=== PATIENT | female | born 1935 | race African-American/Black ===

== ENCOUNTER 2017-04-21 22:10 | Emergency (ER) | payer MEDICARE, BC ==
[~2017-04-21] VITALS: Ht 152.4 cm; Wt 99.8 kg
[~2017-04-21 22:10] MED LIST: DIPY75TA PO; ERGO500027 PO; FURO20TA3 PO; LISI40TA PO; POTA10TA31 PO; POTASSIUM CHLO10 MEQ PO; RANI300C PO; TRAM50TA PO
[2017-04-21] MEDS ORDERED: KETOROLAC TROMETHAMINE 30 MG/ML INJ. IV ONE (22:30)
[2017-04-21] MEDS ORDERED: diphenhydrAMINE 50 MG/ML VIAL IVP ONE (22:30)
[2017-04-21] MEDS ORDERED: HYDROcodone/APAP 5/325MG 1 TAB TABLET PO ONE (22:30)
[2017-04-21 22:42] LABS: BASO % 0 % (0-3); EOS % 3 % (0-3); HEMATOCRIT 37.4 % (36.0-47.0); HEMOGLOBIN 12.1 g/dL (12.0-15.5); LYMPH # 1.1 x10^3/uL (1.0-4.8); LYMPH % 23 % (24-48); MEAN CORPUSCULAR HEMOGLOBIN 24 pg (25-35); MEAN CORPUSCULAR HGB CONC 32 g/dL (31-37); MEAN CORPUSCULAR VOLUME 75 fL (79-100); MONO % 9 % (0-9); NEUT % 66 % (31-73); PLATELET COUNT 196 x10^3/uL (140-400); RED BLOOD COUNT 5.01 x10^6/uL (3.50-5.40); RED CELL DISTRIBUTION WIDTH 17.5 % (11.5-14.5)
[2017-04-21] MEDS ORDERED: IV NORMAL SALINE 1000ML BAG 1,000 ML IV ONE (22:45)
[2017-04-21 22:49] LABS: INR 1.1 (0.8-1.1); PROTHROMBIN TIME PATIENT 13.4 SEC (11.7-14.0)
--- NOTE | 2017-04-21 23:52 | PHYS DOC ---
Past Medical History Past Medical History: Asthma, Hypertension, TIA Past Surgical History: Cholecystectomy, Hysterectomy Additional Past Surgical Histo: Gastric Bypass Alcohol Use: None Drug Use: None Adult General Chief Complaint Chief Complaint: DIARRHEA HPI HPI Patient is a 82 year old female presenting to the emergency department for evaluation of diarrhea that started today at 2 AM. Says that she is going at least once every hour and that is very watery and that every time she eats or drinks something she has a watery stool. She denies there being any blood in it and she also denies any abdominal pain fevers chills nausea vomiting. She also denies any recent antibiotic use chemotherapy diabetes or travel. She has tried some Imodium with little relief. Review of Systems Review of Systems Constitutional: Denies fever or chills [] Eyes: Denies change in visual acuity, redness, or eye pain [] HENT: Denies nasal congestion or sore throat [] Respiratory: Denies cough or shortness of breath [] Cardiovascular: No additional information not addressed in HPI [] GI: Denies abdominal pain, nausea, vomiting, bloody stools. + diarrhea [] : Denies dysuria or hematuria [] Musculoskeletal: Denies back pain or joint pain [] Integument: Denies rash or skin lesions [] Neurologic: Denies headache, focal weakness or sensory changes [] Current Medications Current Medications Current Medications Medications (Trade) Dose Ordered Sig/Reinaldo Start Time Stop Time Status Last Admin Dose Admin Acetaminophen/ Hydrocodone Bitart (Lortab 5/325) 2 tab 1X ONCE 04/21/17 22:30 04/21/17 22:30 DC Diphenhydramine HCl (Benadryl) 50 mg 1X ONCE 04/21/17 22:30 04/21/17 22:30 DC Ketorolac Tromethamine (Toradol) 30 mg 1X ONCE 04/21/17 22:30 04/21/17 22:30 DC Sodium Chloride 1,000 ml @ 1,000 mls/hr 1X ONCE 04/21/17 22:45 04/21/17 23:44 DC 04/21/17 22:45 1,000 MLS/HR Allergies Allergies Allergies Coded Allergies Type Severity Reaction Last Updated Verified Sulfa (Sulfonamide Antibiotics) Allergy Intermediate 02/01/16 Yes Physical Exam Physical Exam Constitutional: Well developed, well nourished, no acute distress, non-toxic appearance. [] HENT: Normocephalic, atraumatic, bilateral external ears normal, oropharynx moist, no oral exudates, nose normal. [] Eyes: PERRLA, EOMI, conjunctiva normal, no discharge. [] Neck: Normal range of motion, no tenderness, supple, no stridor. [] Cardiovascular:Heart rate regular rhythm and tachycardiac at 105, no murmur [] Lungs & Thorax: Bilateral breath sounds clear to auscultation [] Abdomen: Bowel sounds normal, soft, no tenderness, no masses, no pulsatile masses. [] Skin: Warm, dry, no erythema, no rash. [] Back: No tenderness, no CVA tenderness. [] Extremities: No tenderness, no cyanosis, no clubbing, ROM intact, no edema. [] Neurologic: Alert and oriented X 3, normal motor function, normal sensory function, no focal deficits noted. [] Current Patient Data Vital Signs Vital Signs Date Time Temp Pulse Resp B/P (MAP) Pulse Ox O2 Delivery O2 Flow Rate FiO2 04/22/17 00:00 94 14 166/74 (104) 97 Room Air 04/21/17 22:15 97.5 97.5 Lab Values Laboratory Tests Test 04/21/17 22:30 04/22/17 00:02 White Blood Count 5.0 x10^3/uL (4.0-11.0) Red Blood Count 5.01 x10^6/uL (3.50-5.40) Hemoglobin 12.1 g/dL (12.0-15.5) Hematocrit 37.4 % (36.0-47.0) Mean Corpuscular Volume 75 fL (79-100) L Mean Corpuscular Hemoglobin 24 pg (25-35) L Mean Corpuscular Hemoglobin Concent 32 g/dL (31-37) Red Cell Distribution Width 17.5 % (11.5-14.5) H Platelet Count 196 x10^3/uL (140-400) Neutrophils (%) (Auto) 66 % (31-73) Lymphocytes (%) (Auto) 23 % (24-48) L Monocytes (%) (Auto) 9 % (0-9) Eosinophils (%) (Auto) 3 % (0-3) Basophils (%) (Auto) 0 % (0-3) Neutrophils # (Auto) 3.2 x10^3uL (1.8-7.7) Lymphocytes # (Auto) 1.1 x10^3/uL (1.0-4.8) Monocytes # (Auto) 0.4 x10^3/uL (0.0-1.1) Eosinophils # (Auto) 0.1 x10^3/uL (0.0-0.7) Basophils # (Auto) 0.0 x10^3/uL (0.0-0.2) Prothrombin Time 13.4 SEC (11.7-14.0) Prothrombin Time INR 1.1 (0.8-1.1) PTT 32 SEC (24-38) Sodium Level 139 mmol/L (136-145) Potassium Level 4.0 mmol/L (3.5-5.1) Chloride Level 107 mmol/L (98-107) Carbon Dioxide Level 23 mmol/L (21-32) Anion Gap 9 (6-14) Blood Urea Nitrogen 15 mg/dL (7-20) Creatinine 1.0 mg/dL (0.6-1.0) Estimated GFR (Cockcroft-Gault) 64.6 BUN/Creatinine Ratio 15 (6-20) Glucose Level 89 mg/dL (70-99) Calcium Level 10.4 mg/dL (8.5-10.1) H Magnesium Level 1.9 mg/dL (1.8-2.4) Total Bilirubin 0.6 mg/dL (0.2-1.0) Aspartate Amino Transferase (AST) 35 U/L (15-37) Alanine Aminotransferase (ALT) 13 U/L (14-59) L Alkaline Phosphatase 78 U/L (46-116) Creatine Kinase 54 U/L (26-192) Total Protein 6.8 g/dL (6.4-8.2) Albumin 3.1 g/dL (3.4-5.0) L Albumin/Globulin Ratio 0.8 (1.0-1.7) L Laboratory Tests 04/21/17 22:30 Laboratory Tests 04/22/17 00:02 EKG EKG [] Radiology/Procedures Radiology/Procedures [] Course & Med Decision Making Course & Med Decision Making Patient with nonspecific diarrhea that does not sound particularly concerning to me and she is having no pain fevers or blood in it. She is slightly tachycardic and she is allergy so I will check some labs give fluids and reassess. Labs are quite unremarkable. After 1 L of fluids her heart rate is down to 80 and she feels better and is asking to go home. Wanted to check a stool sample and she says that she was having diarrhea every 30 minutes to one hour but she did not have a single stool during her three-hour emergency department stay. Patient was told to drink plenty of fluids eat a soft nonirritating diet and follow with her primary care provider in 2-3 days to ensure improvement and to come back to the ER sooner with any worsening pain dizziness fevers or other general concerns. Patient aware and agreeable with plan and verbalized understanding of the above instructions. Dragon Disclaimer Dragon Disclaimer This electronic medical record was generated, in whole or in part, using a voice recognition dictation system. Departure Departure Impression: Primary Impression: Diarrhea Additional Impression: Dehydration Disposition: 01 HOME, SELF-CARE Condition: GOOD Referrals: LUIS FARLEY MD (PCP) Patient Instructions: Diarrhea Problem Qualifiers Primary Impression: Diarrhea Diarrhea type: unspecified type Qualified Codes: R19.7 - Diarrhea, unspecified FRANCO RAWLS DO Apr 21, 2017 23:52
[2017-04-22 00:34] LABS: CALCIUM 10.4 mg/dL (8.5-10.1); GFR 64.6
[2017-04-22 00:39] LABS: ALBUMIN 3.1 g/dL (3.4-5.0); ALBUMIN/GLOBULIN RATIO 0.8 (1.0-1.7); MAGNESIUM 1.9 mg/dL (1.8-2.4); TOTAL BILIRUBIN 0.6 mg/dL (0.2-1.0); TOTAL PROTEIN 6.8 g/dL (6.4-8.2)
[2017-04-22 00:49] VITALS: BP 162/74
== END 2017-04-22 01:07 | disposition home or self-care (01) ==
LOC: ER 22:10
DX: R19.7 Diarrhea, unspecified (principal); E86.0 Dehydration; R00.0 Tachycardia, unspecified; J45.909 Unspecified asthma, uncomplicated; I10 Essential (primary) hypertension; Z86.73 Personal history of transient ischemic attack (TIA), and cerebral infarction without residual deficits; Z90.49 Acquired absence of other specified parts of digestive tract; Z90.710 Acquired absence of both cervix and uterus; Z98.84 Bariatric surgery status; Z88.2 Allergy status to sulfonamides
CPT/HCPCS: 36415; 80053; 82550; 83735; 83880; 85027; 85610; 85730; 96360; 96361; 99285; C1887; J7030

== ENCOUNTER → 2017-04-23 | Outpatient (CLI) | payer MEDICARE, BC ==
[2016-09-27 18:17] VITALS: BP_DIAS 74
[2017-04-22 00:49] VITALS: BP_SYST 162
--- NOTE | 2017-04-23 12:03 | RAD ---
DATE: 04/23/2017 EXAM: DIGITAL SCREEN BILAT W/CAD HISTORY: Screening COMPARISON: One year earlier This study was interpreted with the benefit of Computerized Aided Detection (CAD). FINDINGS: Breast Density: SCATTERED The breast parenchyma shows scattered fibroglandular densities. Breast parenchyma level B. There has been little change in the appearance of the breasts compared to the previous exam IMPRESSION: Benign finding BI-RADS CATEGORY: 2 BENIGN FINDING(S) RECOMMENDED FOLLOW-UP: 12M 12 MONTH FOLLOW-UP PQRS compliance statement: Patient information was entered into a reminder system with a target due date 04/23/2018 for the next mammogram. Mammography is a sensitive method for finding small breast cancers, but it does not detect them all and is not a substitute for careful clinical examination. A negative mammogram does not negate a clinically suspicious finding and should not result in delay in biopsying a clinically suspicious abnormality. "Our facility is accredited by the [employer] Mammography Program."
== END | disposition home or self-care (01) ==
LOC: MAMMO 09:39
PROVIDERS: ATTEND Family Medicine
DX: Z12.31 Encounter for screening mammogram for malignant neoplasm of breast (principal)
CPT/HCPCS: G0202; 77067

== ENCOUNTER → 2017-06-28 | Day surgery (SDC) | payer MEDICARE, BC ==
[~2017-06-28] MED LIST changes: +HYDROmorphone 2 MG/ML VIAL IV PRN; +IV RINGERS,LACTATED 1000ML 1,000 ML IV SCH; +LIDOCAINE 1% PF 2 ML VIAL. ID PRN; +MORPHINE SULFATE 2 MG/ML DISP.SYRIN. IV PRN; +ONDANSETRON PF 4 MG/2 ML VIAL. IV PRN; +PROCHLORPERAZINE 10 MG/2 ML VIAL. IV PRN; +PROPOFOL 20 ML IV ONE; +fentaNYL PF VIAL 100 MCG/2 ML VIAL IV PRN
[2017-06-28 11:25] VITALS: BP 180/88
--- NOTE | 2017-06-29 13:54 | PATHOLOGY ---
PATHOLOGY REPORT * * * * * * * * FINAL DIAGNOSIS: A. Small bowel biopsy: - No significant pathologic abnormalities. B. Gastric biopsy, antrum: - Active chronic gastritis, moderate, with Helicobacter organisms identified. C. Esophageal biopsy, distal esophagus: - Segments of hyperplastic squamous esophageal mucosa and gastric mucosa showing chronic inflammation, consistent with reflux esophagitis. D. Colon biopsy, sigmoid polyp: - Hyperplastic polyp. E. Terminal ileum biopsy: - No significant pathologic abnormalities, with two hyperplastic mucosal-associated lymphoid aggregates. F. Colon biopsies, cecum and ascending colon: - Focal colitis having features of chronic ischemia, with increased eosinophils. COMMENT: Sections of the small bowel biopsy reveal segments of small intestine mucosa. The mucosal villi appear normal and show no sprue-like changes or significant inflammatory changes. Sections of the gastric biopsy reveal gastric body mucosa showing congestion and moderate active chronic inflammation. An immunoperoxidase stain for Helicobacter reveals the presence of Helicobacter organisms. Sections of the distal esophageal biopsy reveal segments of hyperplastic squamous esophageal mucosa with contiguous and separate segments of gastric mucosa showing moderate active chronic inflammation. There are a few intraepithelial eosinophils within the hyperplastic squamous esophageal mucosa consistent with reflux esophagitis. There is no evidence of Cruz's change, dysplasia, or malignancy. Sections of the sigmoid colon biopsy reveal a hyperplastic polyp. There are no adenomatous changes or evidence of malignancy. Sections of the terminal ileum biopsy reveal segments of small intestine mucosa containing two hyperplastic mucosal- associated lymphoid aggregates. There are no sprue-like changes or significant inflammatory changes. Sections of the cecal and ascending colon biopsy reveal multiple segments of colonic mucosa. There is focal dropout of colonic glands and shrunken colonic glands associated with fibrosis of lamina propria and focal crypt architectural distortion. These findings are consistent with chronic ischemia. There are also increased intraepithelial eosinophils. The latter finding may be seen with chronic bowel injury. The differential diagnosis of increased eosinophils also includes eosinophilic colitis and drug reaction. Correlate clinically. (JPM:mgr; 06/29/2017) Special Stain: Helicobacter pylori (B1) REPORT ELECTRONICALLY SIGNED BY: Jimbo Eaton M.D. DATE/TIME: 06/29/2017 13:46 * * * * * * * * GROSS PATHOLOGY: A. Received in formalin labeled "Fuel, Alexsandra, small bowel," are two segments of cooley soft tissue measuring 0.1 and 0.25 cm in maximum dimension. The specimen is submitted entirely in cassette A1. B. Received in formalin labeled "gastric antrum," are two segments of cooley soft tissue measuring 0.1 and 0.3 cm in maximum dimension. The specimen is submitted entirely in cassette B1. An immunoperoxidase stain for H. Pylori will be obtained. C. Received in formalin labeled "distal esophagus," are three segments of cooley soft tissue measuring from 0.1 up to 0.3 cm in maximum dimension. The specimen is submitted entirely in cassette C1. D. Received in formalin labeled "sigmoid polyp," are three segments of cooley soft tissue measuring from 0.2 up to 0.3 cm in maximum dimension. The specimen is submitted entirely in cassette D1. E. Received in formalin labeled "terminal ileum biopsy," are two segments of cooley soft tissue measuring 0.2 and 0.3 cm in maximum dimension. The specimen is submitted entirely in cassette E1. F. Received in formalin labeled "cecum and ascending colon biopsy," are four segments of cooley soft tissue measuring from 0.1 up to 0.3 cm in maximum dimension. The specimen is submitted entirely in cassette F1. (JPM; 06/28/17) INITIAL CPT CODE(S): A; 73657 B; 16539, 47210 C; 04368 D; 23654 E; 37510 F; 70128 Professional services performed [place] [address] Technical services performed by [facility] at [address] [place] [address], [facility] [address] [address]. SPECIMEN(S) RECEIVED: A.Small bowel biopsy B.Gastric antrum C.Distal esophagus biopsy D.Sigmoid polyp E.Terminal ileum biopsy F.Cecum and ascending colon biopsy CLINICAL HISTORY: Reflux, diarrhea PATIENT: ALEXSANDRA MIN /AGE: 7 1935 (Age: 82) PATIENT #: [id number] ALT CASE #: SPECIMEN COLLECTION DATE: 06/28/2017 SPECIMEN RECEIVED DATE: 06/28/2017 [facility] [place] [address] - PHONE: [phone] * * * END OF REPORT * * *
== END | disposition home or self-care (01) ==
LOC: ENDOS 09:29
PROVIDERS: ATTEND Internal Medicine Gastroenterology
DX: D12.5 Benign neoplasm of sigmoid colon (principal); K64.0 First degree hemorrhoids; K57.30 Diverticulosis of large intestine without perforation or abscess without bleeding; K21.0 Gastro-esophageal reflux disease with esophagitis; K44.9 Diaphragmatic hernia without obstruction or gangrene; H40.9 Unspecified glaucoma; I10 Essential (primary) hypertension; J45.909 Unspecified asthma, uncomplicated; Z87.39 Personal history of other diseases of the musculoskeletal system and connective tissue; E03.9 Hypothyroidism, unspecified; E66.9 Obesity, unspecified; Z98.41 Cataract extraction status, right eye; Z86.69 Personal history of other diseases of the nervous system and sense organs; Z96.652 Presence of left artificial knee joint; Z98.84 Bariatric surgery status; Z98.42 Cataract extraction status, left eye; Z68.45 Body mass index [BMI] 70 or greater, adult; Z98.51 Tubal ligation status; Z90.710 Acquired absence of both cervix and uterus; Z86.39 Personal history of other endocrine, nutritional and metabolic disease; Z88.2 Allergy status to sulfonamides
CPT/HCPCS: 43239; 45380; 88305; 88342; J2704

== ENCOUNTER → 2018-04-24 | Outpatient (CLI) | payer MEDICARE, BC | END | disposition home or self-care (01) | LOC: MAMMO 12:59 | DX: Z12.31 Encounter for screening mammogram for malignant neoplasm of breast (principal) | CPT/HCPCS: 77063; 77067 ==

== ENCOUNTER 2018-10-17 01:33 | Observation (INO) | payer MEDICARE, BC ==
[~2018-10-17] VITALS: Ht 152.4 cm; Wt 99.1 kg
[~2018-10-17 01:33] MED LIST changes: -HYDROmorphone 2 MG/ML VIAL IV PRN; -IV RINGERS,LACTATED 1000ML 1,000 ML IV SCH; -LIDOCAINE 1% PF 2 ML VIAL. ID PRN; +LISI-130 PO; -LISI40TA PO; -MORPHINE SULFATE 2 MG/ML DISP.SYRIN. IV PRN; -ONDANSETRON PF 4 MG/2 ML VIAL. IV PRN; +POTA10TA12 PO; -POTASSIUM CHLO10 MEQ PO; -PROCHLORPERAZINE 10 MG/2 ML VIAL. IV PRN; -PROPOFOL 20 ML IV ONE; -fentaNYL PF VIAL 100 MCG/2 ML VIAL IV PRN
[2018-10-17] MEDS ORDERED: cloNIDine HCL 0.1 MG TABLET PO ONE (02:00)
[2018-10-17 02:26] LABS: BILIRUBIN,URINE NEGATIVE (NEG); CLARITY,URINE CLEAR; COLOR,URINE YELLOW; NITRITE,URINE NEGATIVE (NEG); PROTEIN,URINE NEGATIVE (NEG-TRACE); UROBILINOGEN,URINE 0.2 mg/dL (0.2 mg/dL)
[2018-10-17 02:36] LABS: BACTERIA,URINE MODERATE /HPF (0-FEW); RBC,URINE 0 /HPF (0-2); SQUAMOUS EPITHELIAL CELL,UR FEW /LPF; WBC,URINE OCC /HPF (0-4)
[2018-10-17 02:52] LABS: BASO # 0.1 x10^3/uL (0.0-0.2); BASO % 1 % (0-3); EOS # 0.3 x10^3/uL (0.0-0.7); EOS % 5 % (0-3); HEMATOCRIT 31.6 % (36.0-47.0); HEMOGLOBIN 10.2 g/dL (12.0-15.5); LYMPH # 2.5 x10^3/uL (1.0-4.8); LYMPH % 41 % (24-48); MEAN CORPUSCULAR HEMOGLOBIN 24 pg (25-35); MEAN CORPUSCULAR HGB CONC 32 g/dL (31-37); MEAN CORPUSCULAR VOLUME 76 fL (79-100); MONO # 0.4 x10^3/uL (0.0-1.1); MONO % 7 % (0-9); NEUT # 2.8 x10^3uL (1.8-7.7); NEUT % 46 % (31-73); PLATELET COUNT 192 x10^3/uL (140-400); RED BLOOD COUNT 4.17 x10^6/uL (3.50-5.40); RED CELL DISTRIBUTION WIDTH 18.8 % (11.5-14.5); WHITE BLOOD COUNT 6.1 x10^3/uL (4.0-11.0)
[2018-10-17] MEDS ORDERED: ACETAMINOPHEN 325 MG TABLET. PO ONE (03:15)
[2018-10-17 03:20] LABS: ALBUMIN 3.2 g/dL (3.4-5.0); ALBUMIN/GLOBULIN RATIO 0.8 (1.0-1.7); CALCIUM 8.6 mg/dL (8.5-10.1); CREATININE 1.1 mg/dL (0.6-1.0); GFR 57.7; TOTAL BILIRUBIN 0.3 mg/dL (0.2-1.0); TOTAL PROTEIN 7.4 g/dL (6.4-8.2)
[2018-10-17 03:21] LABS: POTASSIUM 4.3 mmol/L (3.5-5.1)
--- NOTE | 2018-10-17 03:22 | RAD ---
CT brain without contrast. HISTORY: Dizziness CT scan of the brain was done without contrast. There is mild atrophy. There is no intracranial hemorrhage or subdural hematoma. There is no mass or shift of the midline. Ventricles are normal in size. Visualized sinuses are clear. Patient is asymmetrically positioned. There is mild microvascular change with decreased density in the white matter similar to the old study. An acute CVA is not identified. IMPRESSION: 1. No intracranial hemorrhage or acute finding noted. Electronically signed by: Toni Lin MD (10/17/2018 3:18 AM) [facility]
--- NOTE | 2018-10-17 03:58 | PHYS DOC ---
Past Medical History Past Medical History: Asthma, GERD, Hypertension, TIA Past Surgical History: Cholecystectomy, Hysterectomy Additional Past Surgical Histo: Gastric Bypass Alcohol Use: None Drug Use: None Adult General Chief Complaint Chief Complaint: DIZZY/LIGHT HEADED HPI HPI Patient is a 83 year old male with history of high blood pressure presents with dizziness described as spinning, and headache. Symptom onset was several hours prior to ED arrival. Patient also reports mild nausea no vomiting. Denies neck pain, tinnitus, acute hearing loss, focal extremity weakness or loss of sensation or loss of balance. No chest pain palpitations shortness of breath. Home blood pressure is 200s over 100s. Patient states blood pressure is normally under control. No other acute symptoms or complaints. [] Review of Systems Review of Systems Review symptoms as per history of present illness. All other review symptoms are negative. All other systems were reviewed and found to be within normal limits, except as documented in this note. Current Medications Current Medications Current Medications Medications (Trade) Dose Ordered Sig/Reinaldo Start Time Stop Time Status Last Admin Dose Admin Acetaminophen (Tylenol) 650 mg 1X ONCE 10/17/18 03:15 10/17/18 03:16 DC Clonidine HCl (Catapres) 0.2 mg 1X ONCE 10/17/18 02:00 10/17/18 02:01 DC 10/17/18 02:13 0.2 MG Meclizine HCl (Antivert) 25 mg PRN Q8HRS PRN 10/17/18 04:00 Ondansetron HCl (Zofran) 4 mg PRN Q8HRS PRN 10/17/18 04:00 10/18/18 03:59 Allergies Allergies Allergies Coded Allergies Type Severity Reaction Last Updated Verified Sulfa (Sulfonamide Antibiotics) Allergy Intermediate 06/28/17 Yes Physical Exam Physical Exam Constitutional: Well developed, well nourished, no acute distress, non-toxic appearance. [] HENT: Normocephalic, atraumatic, bilateral external ears normal, oropharynx moist, no oral exudates, nose normal. [] Eyes: PERRLA, EOMI, conjunctiva normal, no discharge. [] Neck: Normal range of motion, no tenderness, supple, no stridor. [] Cardiovascular:Heart rate regular rhythm, no murmur [] Lungs & Thorax: Bilateral breath sounds clear to auscultation [] Abdomen: Bowel sounds normal, soft, no tenderness. [] Skin: Warm, dry, no erythema, no rash. [] Back: No tenderness. [] Extremities: No tenderness, no cyanosis, no clubbing, ROM intact, no edema. [] Neurologic: Alert and oriented X 3, cranial nerves II-12 grossly intact, normal motor function, normal sensory function, no focal deficits noted. [] Psychologic: Affect normal, judgement normal, mood normal. [] Current Patient Data Vital Signs Vital Signs Date Time Temp Pulse Resp B/P (MAP) Pulse Ox O2 Delivery O2 Flow Rate FiO2 10/17/18 02:13 93 221/93 10/17/18 01:44 97.7 20 100 Room Air 97.7 Lab Values Laboratory Tests Test 10/17/18 02:15 10/17/18 02:40 Urine Collection Type Unknown Urine Color Yellow Urine Clarity Clear Urine pH 7.0 Urine Specific [place] <=1.005 Urine Protein Negative mg/dL (NEG-TRACE) Urine Glucose (UA) Negative mg/dL (NEG) Urine Ketones (Stick) Negative mg/dL (NEG) Urine Blood Negative (NEG) Urine Nitrite Negative (NEG) Urine Bilirubin Negative (NEG) Urine Urobilinogen Dipstick 0.2 mg/dL (0.2 mg/dL) Urine Leukocyte Esterase Negative (NEG) Urine RBC 0 /HPF (0-2) Urine WBC Occ /HPF (0-4) Urine Squamous Epithelial Cells Few /LPF Urine Bacteria Moderate /HPF (0-FEW) White Blood Count 6.1 x10^3/uL (4.0-11.0) Red Blood Count 4.17 x10^6/uL (3.50-5.40) Hemoglobin 10.2 g/dL (12.0-15.5) L Hematocrit 31.6 % (36.0-47.0) L Mean Corpuscular Volume 76 fL (79-100) L Mean Corpuscular Hemoglobin 24 pg (25-35) L Mean Corpuscular Hemoglobin Concent 32 g/dL (31-37) Red Cell Distribution Width 18.8 % (11.5-14.5) H Platelet Count 192 x10^3/uL (140-400) Neutrophils (%) (Auto) 46 % (31-73) Lymphocytes (%) (Auto) 41 % (24-48) Monocytes (%) (Auto) 7 % (0-9) Eosinophils (%) (Auto) 5 % (0-3) H Basophils (%) (Auto) 1 % (0-3) Neutrophils # (Auto) 2.8 x10^3uL (1.8-7.7) Lymphocytes # (Auto) 2.5 x10^3/uL (1.0-4.8) Monocytes # (Auto) 0.4 x10^3/uL (0.0-1.1) Eosinophils # (Auto) 0.3 x10^3/uL (0.0-0.7) Basophils # (Auto) 0.1 x10^3/uL (0.0-0.2) Sodium Level 142 mmol/L (136-145) Potassium Level 4.3 mmol/L (3.5-5.1) Chloride Level 106 mmol/L (98-107) Carbon Dioxide Level 26 mmol/L (21-32) Anion Gap 10 (6-14) Blood Urea Nitrogen 17 mg/dL (7-20) Creatinine 1.1 mg/dL (0.6-1.0) H Estimated GFR (Cockcroft-Gault) 57.7 BUN/Creatinine Ratio 15 (6-20) Glucose Level 91 mg/dL (70-99) Calcium Level 8.6 mg/dL (8.5-10.1) Total Bilirubin 0.3 mg/dL (0.2-1.0) Aspartate Amino Transferase (AST) 40 U/L (15-37) H Alanine Aminotransferase (ALT) 22 U/L (14-59) Alkaline Phosphatase 82 U/L (46-116) Total Protein 7.4 g/dL (6.4-8.2) Albumin 3.2 g/dL (3.4-5.0) L Albumin/Globulin Ratio 0.8 (1.0-1.7) L Laboratory Tests 10/17/18 02:40 Laboratory Tests 10/17/18 02:40 EKG EKG [EKG: Reviewed] Radiology/Procedures Radiology/Procedures [CT head: Negative acute disease per radiology report] Course & Med Decision Making Course & Med Decision Making Pertinent Labs and Imaging studies reviewed. (See chart for details) [Blood pressure, nausea improved with treatment. Patient remains dizzy upon standing and sitting up. CT head nonacute. No focal neurologic deficits on exam. Will admit to the hospital service for further evaluation and treatment.] Dragon Disclaimer Dragon Disclaimer This electronic medical record was generated, in whole or in part, using a voice recognition dictation system. Departure Departure Impression: Primary Impression: HTN (hypertension) Additional Impressions: Headache Dizziness Admitting Physician: Other (Dr. Iglesias) Referrals: LUIS FARLEY MD (PCP) Problem Qualifiers NICOLE BUTCHER DO Oct 17, 2018 03:58
[2018-10-17] MEDS ORDERED: ONDANSETRON PF 4 MG/2 ML VIAL. IV PRN ×2 (04:00→09:00)
[2018-10-17] MEDS ORDERED: MECLIZINE HCL 12.5 MG TABLET. PO ONE (04:00)
[2018-10-17] MEDS ORDERED: MECLIZINE HCL 12.5 MG TABLET. PO PRN (04:00)
[2018-10-17 04:45] VITALS: BP 134/49
[2018-10-17] MEDS ORDERED: ASPI-630 PO (05:42)
[2018-10-17] MEDS ORDERED: ALBU2.5V8 INH (05:42)
[2018-10-17] MEDS ORDERED: ERGO500027 PO (05:42)
[2018-10-17] MEDS ORDERED: FURO-68 PO (05:42)
[2018-10-17] MEDS ORDERED: CARV25TA PO (05:42)
--- NOTE | 2018-10-17 06:50 | EKG ---
[address] [place] [address] Test Date: 2018-10-17 Test Time: 01:55:36 Pat Name: ALEXSANDRA MIN Department: Room: Gender: F Neurodiagnostic Technician: : 1935 Requested By: NICOLE BUTCHER Order Number: [id number] Reading MD: Measurements Intervals [place] Rate: 74 P: 61 CO: 124 QRS: 47 QRSD: 114 T: 42 QT: 424 QTc: 471 Interpretive Statements SINUS RHYTHM R-S TRANSITION ZONE IN V LEADS DISPLACED TO THE RIGHT INCOMPLETE RIGHT BUNDLE BRANCH BLOCK QRS(T) CONTOUR ABNORMALITY CONSIDER ANTEROLATERAL MYOCARDIAL DAMAGE CONSIDER INFERIOR MYOCARDIAL DAMAGE POSSIBLY ABNORMAL ECG RI6.01 No previous ECG available for comparison
[2018-10-17 07:00] VITALS: BP 127/55
[2018-10-17] MEDS ORDERED: FUROSEMIDE 40 MG TABLET. PO SCH (09:00)
[2018-10-17] MEDS ORDERED: ALBUTEROL SULFATE 2.5 MG/3 ML NEBU. INH PRN (09:00)
[2018-10-17] MEDS ORDERED: C.DIFF MED SCREEN BY RX. MC ONE (09:00)
[2018-10-17] MEDS ORDERED: cloNIDine HCL 0.1 MG TABLET PO PRN (09:00)
[2018-10-17] MEDS ORDERED: POTASSIUM CHLORIDE 10 MEQ TABLET.ER. PO SCH (09:00)
[2018-10-17] MEDS ORDERED: ERGOCALCIFEROL (VITAMIN D2) 50,000 UNIT CAPSULE. PO SCH (09:00)
[2018-10-17] MEDS ORDERED: LISINOPRIL 20 MG TABLET PO SCH (09:00)
[2018-10-17] MEDS ORDERED: CARVEDILOL 12.5 MG TABLET. PO SCH (09:00)
[2018-10-17] MEDS ORDERED: ASPIRIN CHEWABLE 81 MG TABLET. PO SCH (09:00)
[2018-10-17] MEDS ORDERED: DIPYRIDAMOLE 25 MG TABLET. PO SCH (09:15)
[2018-10-17] MEDS ORDERED: IBUPROFEN 400 MG TABLET. PO PRN (10:15)
[2018-10-17] MEDS ORDERED: IBUPROFEN 600 MG TABLET. PO ONE (10:15)
[2018-10-17] MEDS ORDERED: CLON0.1T12 PO (10:15)
[2018-10-17] MEDS ORDERED: MECL12.52 PO (10:20)
--- NOTE | 2018-10-17 10:20 | PDOC1 ---
History and Physical Date of Admission Date of Admission DATE: 10/17/18 TIME: 10:14 Identification/Chief Complaint Chief Complaint Dizziness Source Source: Caregiver, Chart review, Patient History of Present Illness History of Present Illness 83-year-old obese record female with a BMI 43, hypertensive supposed to be on Lasix, beta gregory and lisinopril at home and claims compliance, comes in because of dizziness. Blood pressure was greater than 200s at the emergency room. Got clonidine and meclizine and feeling better although upon getting up was still dizzy hence admitted I'm seeing in the morning the next day and her blood pressure is 120s or 130s systolic but now complaining of headache. Creatinine is 1.1 with a GFR 57. 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 She is cautious about taking NSAIDs. I did educate her about CK D AK I etc. We will try ibuprofen 6001 for her heaache (lowered BP too much?), but did recommend not taking this too much given kidney function and she understands. She claims she usually runs high at home in BP< She claims she did not run out of meds & that she is compliant. I have Rx'd clonidine when necessary. Again she got clonidine and meclizine at the ER and that resolved her symptoms or blood pressure. Seemingly no PT needs. Will order an echo cardiogram to check hypertensive heart disease. If BP remains stable and echo okay and headache gone then can go home later this afternoon. Discussed with her, patient seen and examined, and recent my plan Past Medical History Cardiovascular: HTN Pulmonary: Asthma CENTRAL NERVOUS SYSTEM: TIA GI: GERD Heme/Onc: No pertinent hx Hepatobiliary: No pertinent hx Psych: No pertinent hx Musculoskeletal: Osteoarthritis Rheumatologic: No pertinent hx Infectious disease: No pertinent hx Renal/: No pertinent hx Endocrine: Other Past Surgical History Past Surgical History: No pertinent history Family History Family History: Hypertension Social History Smoke: No ALCOHOL: none Drugs: None Current Problem List Problem List Problems Medical Problems: (1) Dizziness Status: Acute (2) Headache Status: Acute (3) HTN (hypertension) Status: Acute Current Medications Current Medications Current Medications Clonidine HCl (Catapres) 0.2 mg 1X ONCE PO Last administered on 10/17/18at 02: 13; Start 10/17/18 at 02:00; Stop 10/17/18 at 02:01; Status DC Acetaminophen (Tylenol) 650 mg 1X ONCE PO Last administered on 10/17/18at 04:04 ; Start 10/17/18 at 03:15; Stop 10/17/18 at 03:16; Status DC Meclizine HCl (Antivert) 12.5 mg 1X ONCE PO Last administered on 10/17/18at 04: 04; Start 10/17/18 at 04:00; Stop 10/17/18 at 04:01; Status DC Ondansetron HCl (Zofran) 4 mg PRN Q8HRS PRN IV NAUSEA/VOMITING; Start 10/17/18 at 04:00; Stop 10/17/18 at 08:59; Status DC Meclizine HCl (Antivert) 25 mg PRN Q8HRS PRN PO DIZZINESS; Start 10/17/18 at 04 :00 Pharmacy Consult (C.diff Med Screen By Rx) 1 each 1X ONCE [facility] ; Start 10/17/18 at 09:00; Stop 10/17/18 at 09:01; Status DC Ondansetron HCl (Zofran) 4 mg PRN Q6HRS PRN IV NAUSEA/VOMITING; Start 10/17/18 at 09:00 Clonidine HCl (Catapres) 0.1 mg PRN Q1HR PRN PO HYPERTENSION, SEE COMMENTS; Start 10/17/18 at 09:00 Albuterol Sulfate (Ventolin Neb Soln) 2.5 mg PRN Q4HRS PRN INH SHORTNESS OF BREATH; Start 10/17/18 at 09:00 Aspirin (Children'S Aspirin) 81 mg DAILY PO ; Start 10/17/18 at 09:00 Ergocalciferol (Vitamin D2) 50,000 unit WEEKLY PO ; Start 10/17/18 at 09:00 Furosemide (Lasix) 40 mg DAILY PO ; Start 10/17/18 at 09:00 Lisinopril (Prinivil) 40 mg BID PO ; Start 10/17/18 at 09:00 Potassium Chloride (Klor-Con) 20 meq DAILY PO ; Start 10/17/18 at 09:00 Carvedilol (Coreg) 12.5 mg BIDWMEALS PO ; Start 10/17/18 at 09:00 Dipyridamole (Persantine) 75 mg BID PO ; Start 10/17/18 at 09:15 Famotidine (Pepcid) 40 mg QHS PO ; Start 10/17/18 at 21:00 Ibuprofen (Motrin) 600 mg 1X ONCE PO ; Start 10/17/18 at 10:15; Stop 10/17/18 at 10:16 Ibuprofen (Motrin) 400 mg PRN Q6HRS PRN PO INFLAMMATION; Start 10/17/18 at 10: 15; Status UNV Active Scripts Active Reported Proair Hfa Inhaler (Albuterol Sulfate) 8.5 Gm Hfa.aer.ad 2 Puff INH PRN Q4HRS PRN Lasix (Furosemide) 40 Mg Tablet 1 Tab PO DAILY Aspirin 81 Mg Tab.chew 1 Tab PO DAILY Vitamin D2 (Ergocalciferol (Vitamin D2)) 50,000 Unit Capsule 1 Cap PO WEEKLY takes every Mondays Coreg (Carvedilol) 25 Mg Tablet 12.5 Mg PO BIDWMEALS Dipyridamole 75 Mg Tablet 75 Mg PO BID Ranitidine Hcl 300 Mg Capsule 1 Cap PO DAILY Potassium Chloride 10 Meq Capsule.er 2 Cap PO DAILY Lisinopril 40 Mg Tablet 1 Tab PO BID Allergies Allergies: Coded Allergies: Sulfa (Sulfonamide Antibiotics) (Verified Allergy, Intermediate, 06/28/17) ROS Review of System Dizzy headache, the rest of ROS 14 point negative Physical Exam General: Alert, Oriented X3, No acute distress, Other (but she is holding her head-CT head negative) HEENT: Atraumatic Lungs: Clear to auscultation, Normal air movement Heart: S1S2, RRR, no thrills, no rubs, no gallops, no murmurs Cardiovascular: S1, S2 Breasts: Normal, Rt breast nml w/o mass, Lt breast nml w/o mass, Nipples normal Abdomen: Normal bowel sounds, Soft, No tenderness, No hepatosplenomegaly, No masses Rectal Exam: not examined PELVIC: Nml ext genitalia Extremities: No clubbing, No cyanosis, No edema, Normal pulses, No tenderness/ swelling Skin: No rashes, No breakdown, No significant lesion Neuro: Normal gait, Normal speech, Strength at 5/5 X4 ext, Normal tone, Sensation intact, Cranial nerves 3-12 NL, Reflexes 2+ Psych/Mental Status: Mental status NL, Mood NL Vitals Vitals Vital Signs Date Time Temp Pulse Resp B/P (MAP) Pulse Ox O2 Delivery O2 Flow Rate FiO2 10/17/18 07:00 97.3 65 18 127/55 (79) 100 Room Air 97.3 Labs Labs Laboratory Tests Test 10/17/18 02:15 10/17/18 02:40 Urine Collection Type Unknown Urine Color Yellow Urine Clarity Clear Urine pH 7.0 Urine Specific [place] <=1.005 Urine Protein Negative mg/dL (NEG-TRACE) Urine Glucose (UA) Negative mg/dL (NEG) Urine Ketones (Stick) Negative mg/dL (NEG) Urine Blood Negative (NEG) Urine Nitrite Negative (NEG) Urine Bilirubin Negative (NEG) Urine Urobilinogen Dipstick 0.2 mg/dL (0.2 mg/dL) Urine Leukocyte Esterase Negative (NEG) Urine RBC 0 /HPF (0-2) Urine WBC Occ /HPF (0-4) Urine Squamous Epithelial Cells Few /LPF Urine Bacteria Moderate /HPF (0-FEW) White Blood Count 6.1 x10^3/uL (4.0-11.0) Red Blood Count 4.17 x10^6/uL (3.50-5.40) Hemoglobin 10.2 g/dL (12.0-15.5) Hematocrit 31.6 % (36.0-47.0) Mean Corpuscular Volume 76 fL (79-100) Mean Corpuscular Hemoglobin 24 pg (25-35) Mean Corpuscular Hemoglobin Concent 32 g/dL (31-37) Red Cell Distribution Width 18.8 % (11.5-14.5) Platelet Count 192 x10^3/uL (140-400) Neutrophils (%) (Auto) 46 % (31-73) Lymphocytes (%) (Auto) 41 % (24-48) Monocytes (%) (Auto) 7 % (0-9) Eosinophils (%) (Auto) 5 % (0-3) Basophils (%) (Auto) 1 % (0-3) Neutrophils # (Auto) 2.8 x10^3uL (1.8-7.7) Lymphocytes # (Auto) 2.5 x10^3/uL (1.0-4.8) Monocytes # (Auto) 0.4 x10^3/uL (0.0-1.1) Eosinophils # (Auto) 0.3 x10^3/uL (0.0-0.7) Basophils # (Auto) 0.1 x10^3/uL (0.0-0.2) Sodium Level 142 mmol/L (136-145) Potassium Level 4.3 mmol/L (3.5-5.1) Chloride Level 106 mmol/L (98-107) Carbon Dioxide Level 26 mmol/L (21-32) Anion Gap 10 (6-14) Blood Urea Nitrogen 17 mg/dL (7-20) Creatinine 1.1 mg/dL (0.6-1.0) Estimated GFR (Cockcroft-Gault) 57.7 BUN/Creatinine Ratio 15 (6-20) Glucose Level 91 mg/dL (70-99) Calcium Level 8.6 mg/dL (8.5-10.1) Total Bilirubin 0.3 mg/dL (0.2-1.0) Aspartate Amino Transf (AST/SGOT) 40 U/L (15-37) Alanine Aminotransferase (ALT/SGPT) 22 U/L (14-59) Alkaline Phosphatase 82 U/L (46-116) Total Protein 7.4 g/dL (6.4-8.2) Albumin 3.2 g/dL (3.4-5.0) Albumin/Globulin Ratio 0.8 (1.0-1.7) Laboratory Tests Test 10/17/18 02:15 10/17/18 02:40 Urine Collection Type Unknown Urine Color Yellow Urine Clarity Clear Urine pH 7.0 Urine Specific [place] <=1.005 Urine Protein Negative mg/dL (NEG-TRACE) Urine Glucose (UA) Negative mg/dL (NEG) Urine Ketones (Stick) Negative mg/dL (NEG) Urine Blood Negative (NEG) Urine Nitrite Negative (NEG) Urine Bilirubin Negative (NEG) Urine Urobilinogen Dipstick 0.2 mg/dL (0.2 mg/dL) Urine Leukocyte Esterase Negative (NEG) Urine RBC 0 /HPF (0-2) Urine WBC Occ /HPF (0-4) Urine Squamous Epithelial Cells Few /LPF Urine Bacteria Moderate /HPF (0-FEW) White Blood Count 6.1 x10^3/uL (4.0-11.0) Red Blood Count 4.17 x10^6/uL (3.50-5.40) Hemoglobin 10.2 g/dL (12.0-15.5) Hematocrit 31.6 % (36.0-47.0) Mean Corpuscular Volume 76 fL (79-100) Mean Corpuscular Hemoglobin 24 pg (25-35) Mean Corpuscular Hemoglobin Concent 32 g/dL (31-37) Red Cell Distribution Width 18.8 % (11.5-14.5) Platelet Count 192 x10^3/uL (140-400) Neutrophils (%) (Auto) 46 % (31-73) Lymphocytes (%) (Auto) 41 % (24-48) Monocytes (%) (Auto) 7 % (0-9) Eosinophils (%) (Auto) 5 % (0-3) Basophils (%) (Auto) 1 % (0-3) Neutrophils # (Auto) 2.8 x10^3uL (1.8-7.7) Lymphocytes # (Auto) 2.5 x10^3/uL (1.0-4.8) Monocytes # (Auto) 0.4 x10^3/uL (0.0-1.1) Eosinophils # (Auto) 0.3 x10^3/uL (0.0-0.7) Basophils # (Auto) 0.1 x10^3/uL (0.0-0.2) Sodium Level 142 mmol/L (136-145) Potassium Level 4.3 mmol/L (3.5-5.1) Chloride Level 106 mmol/L (98-107) Carbon Dioxide Level 26 mmol/L (21-32) Anion Gap 10 (6-14) Blood Urea Nitrogen 17 mg/dL (7-20) Creatinine 1.1 mg/dL (0.6-1.0) Estimated GFR (Cockcroft-Gault) 57.7 BUN/Creatinine Ratio 15 (6-20) Glucose Level 91 mg/dL (70-99) Calcium Level 8.6 mg/dL (8.5-10.1) Total Bilirubin 0.3 mg/dL (0.2-1.0) Aspartate Amino Transf (AST/SGOT) 40 U/L (15-37) Alanine Aminotransferase (ALT/SGPT) 22 U/L (14-59) Alkaline Phosphatase 82 U/L (46-116) Total Protein 7.4 g/dL (6.4-8.2) Albumin 3.2 g/dL (3.4-5.0) Albumin/Globulin Ratio 0.8 (1.0-1.7) VTE Prophylaxis Ordered VTE Prophylaxis Devices: Yes VTE Pharmacological Prophylaxi: Yes Assessment/Plan Assessment/Plan Hypertensive emergency resolved within 12 hours Obesity, BMI 43-needs to lose weight Headache/dizziness in the background of hypertensive emergency and possibly lowering the blood pressure too low Plan: Check echo, I have resume home meds-she claims she does not need any scripts I did Rx clonidine when necessary Meclizine when necessary If echo remains okay, BP remains stable and headache gone, then can go home later EMILY MILLER MD Oct 17, 2018 10:20
--- NOTE | 2018-10-17 10:21 | PDOC3 ---
Discharge Summary Visit Information Date of Admission: Oct 16, 2018 Date of Discharge: Oct 17, 2018 Admitting Diagnosis Comment: Hypertensive emergency Dizziness and headache in the background of #1 Obesity, BMI 43 Final Diagnosis Problems Medical Problems: (1) Dizziness Status: Acute (2) Headache Status: Acute (3) HTN (hypertension) Status: Acute Brief Hospital Course Allergies Allergies Coded Allergies Type Severity Reaction Last Updated Verified Sulfa (Sulfonamide Antibiotics) Allergy Intermediate 06/28/17 Yes Vital Signs Vital Signs Date Time Temp Pulse Resp B/P (MAP) Pulse Ox O2 Delivery O2 Flow Rate FiO2 10/17/18 07:00 97.3 65 18 127/55 (79) 100 Room Air 97.3 Lab Results Laboratory Tests Test 10/17/18 02:15 10/17/18 02:40 Urine Collection Type Unknown Urine Color Yellow Urine Clarity Clear Urine pH 7.0 Urine Specific [place] <=1.005 Urine Protein Negative mg/dL (NEG-TRACE) Urine Glucose (UA) Negative mg/dL (NEG) Urine Ketones (Stick) Negative mg/dL (NEG) Urine Blood Negative (NEG) Urine Nitrite Negative (NEG) Urine Bilirubin Negative (NEG) Urine Urobilinogen Dipstick 0.2 mg/dL (0.2 mg/dL) Urine Leukocyte Esterase Negative (NEG) Urine RBC 0 /HPF (0-2) Urine WBC Occ /HPF (0-4) Urine Squamous Epithelial Cells Few /LPF Urine Bacteria Moderate /HPF (0-FEW) White Blood Count 6.1 x10^3/uL (4.0-11.0) Red Blood Count 4.17 x10^6/uL (3.50-5.40) Hemoglobin 10.2 g/dL (12.0-15.5) Hematocrit 31.6 % (36.0-47.0) Mean Corpuscular Volume 76 fL (79-100) Mean Corpuscular Hemoglobin 24 pg (25-35) Mean Corpuscular Hemoglobin Concent 32 g/dL (31-37) Red Cell Distribution Width 18.8 % (11.5-14.5) Platelet Count 192 x10^3/uL (140-400) Neutrophils (%) (Auto) 46 % (31-73) Lymphocytes (%) (Auto) 41 % (24-48) Monocytes (%) (Auto) 7 % (0-9) Eosinophils (%) (Auto) 5 % (0-3) Basophils (%) (Auto) 1 % (0-3) Neutrophils # (Auto) 2.8 x10^3uL (1.8-7.7) Lymphocytes # (Auto) 2.5 x10^3/uL (1.0-4.8) Monocytes # (Auto) 0.4 x10^3/uL (0.0-1.1) Eosinophils # (Auto) 0.3 x10^3/uL (0.0-0.7) Basophils # (Auto) 0.1 x10^3/uL (0.0-0.2) Sodium Level 142 mmol/L (136-145) Potassium Level 4.3 mmol/L (3.5-5.1) Chloride Level 106 mmol/L (98-107) Carbon Dioxide Level 26 mmol/L (21-32) Anion Gap 10 (6-14) Blood Urea Nitrogen 17 mg/dL (7-20) Creatinine 1.1 mg/dL (0.6-1.0) Estimated GFR (Cockcroft-Gault) 57.7 BUN/Creatinine Ratio 15 (6-20) Glucose Level 91 mg/dL (70-99) Calcium Level 8.6 mg/dL (8.5-10.1) Total Bilirubin 0.3 mg/dL (0.2-1.0) Aspartate Amino Transf (AST/SGOT) 40 U/L (15-37) Alanine Aminotransferase (ALT/SGPT) 22 U/L (14-59) Alkaline Phosphatase 82 U/L (46-116) Total Protein 7.4 g/dL (6.4-8.2) Albumin 3.2 g/dL (3.4-5.0) Albumin/Globulin Ratio 0.8 (1.0-1.7) Laboratory Tests Test 10/17/18 02:15 10/17/18 02:40 Urine Collection Type Unknown Urine Color Yellow Urine Clarity Clear Urine pH 7.0 Urine Specific [place] <=1.005 Urine Protein Negative mg/dL (NEG-TRACE) Urine Glucose (UA) Negative mg/dL (NEG) Urine Ketones (Stick) Negative mg/dL (NEG) Urine Blood Negative (NEG) Urine Nitrite Negative (NEG) Urine Bilirubin Negative (NEG) Urine Urobilinogen Dipstick 0.2 mg/dL (0.2 mg/dL) Urine Leukocyte Esterase Negative (NEG) Urine RBC 0 /HPF (0-2) Urine WBC Occ /HPF (0-4) Urine Squamous Epithelial Cells Few /LPF Urine Bacteria Moderate /HPF (0-FEW) White Blood Count 6.1 x10^3/uL (4.0-11.0) Red Blood Count 4.17 x10^6/uL (3.50-5.40) Hemoglobin 10.2 g/dL (12.0-15.5) Hematocrit 31.6 % (36.0-47.0) Mean Corpuscular Volume 76 fL (79-100) Mean Corpuscular Hemoglobin 24 pg (25-35) Mean Corpuscular Hemoglobin Concent 32 g/dL (31-37) Red Cell Distribution Width 18.8 % (11.5-14.5) Platelet Count 192 x10^3/uL (140-400) Neutrophils (%) (Auto) 46 % (31-73) Lymphocytes (%) (Auto) 41 % (24-48) Monocytes (%) (Auto) 7 % (0-9) Eosinophils (%) (Auto) 5 % (0-3) Basophils (%) (Auto) 1 % (0-3) Neutrophils # (Auto) 2.8 x10^3uL (1.8-7.7) Lymphocytes # (Auto) 2.5 x10^3/uL (1.0-4.8) Monocytes # (Auto) 0.4 x10^3/uL (0.0-1.1) Eosinophils # (Auto) 0.3 x10^3/uL (0.0-0.7) Basophils # (Auto) 0.1 x10^3/uL (0.0-0.2) Sodium Level 142 mmol/L (136-145) Potassium Level 4.3 mmol/L (3.5-5.1) Chloride Level 106 mmol/L (98-107) Carbon Dioxide Level 26 mmol/L (21-32) Anion Gap 10 (6-14) Blood Urea Nitrogen 17 mg/dL (7-20) Creatinine 1.1 mg/dL (0.6-1.0) Estimated GFR (Cockcroft-Gault) 57.7 BUN/Creatinine Ratio 15 (6-20) Glucose Level 91 mg/dL (70-99) Calcium Level 8.6 mg/dL (8.5-10.1) Total Bilirubin 0.3 mg/dL (0.2-1.0) Aspartate Amino Transf (AST/SGOT) 40 U/L (15-37) Alanine Aminotransferase (ALT/SGPT) 22 U/L (14-59) Alkaline Phosphatase 82 U/L (46-116) Total Protein 7.4 g/dL (6.4-8.2) Albumin 3.2 g/dL (3.4-5.0) Albumin/Globulin Ratio 0.8 (1.0-1.7) Brief Hospital Course 83-year-old obese record female with a BMI 43, hypertensive supposed to be on Lasix, beta gregory and lisinopril at home and claims compliance, comes in because of dizziness. Blood pressure was greater than 200s at the emergency room. Got clonidine and meclizine and feeling better although upon getting up was still dizzy hence admitted I'm seeing in the morning the next day and her blood pressure is 120s or 130s systolic but now complaining of headache. Creatinine is 1.1 with a GFR 57. 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 She is cautious about taking NSAIDs. I did educate her about CK D AK I etc. We will try ibuprofen 6001 for her heaache (lowered BP too much?), but did recommend not taking this too much given kidney function and she understands. She claims she usually runs high at home in BP< She claims she did not run out of meds & that she is compliant. I have Rx'd clonidine when necessary. Again she got clonidine and meclizine at the ER and that resolved her symptoms or blood pressure. Seemingly no PT needs. Will order an echo cardiogram to check hypertensive heart disease. If BP remains stable and echo okay and headache gone then can go home later this afternoon. Discussed with her, patient seen and examined, and recent my plan Discharge Information Condition at Discharge: Improved, Stable Disposition/Orders: D/C to Home Scheduled Aspirin (Aspirin) 81 Mg Tab.chew, 1 TAB PO DAILY for "I just take it for the heart", #30 Ref 3 (Reported) Entered as Reported by: VLAD SEGURA on 10/17/18541 Last Action: Continued on 10/17/18858 by EMILY MILLER Carvedilol (Coreg) 25 Mg Tablet, 12.5 MG PO BIDWMEALS for CARDIAC, (Reported) Entered as Reported by: VLAD SEGURA on 10/17/18541 Last Action: Converted on 10/17/18858 by EMILY MILLER Dipyridamole (Dipyridamole) 75 Mg Tablet, 75 MG PO BID, (Reported) Entered as Reported by: Rhonda Kamara on 02/02/16935 Last Action: Converted on 10/17/18858 by EMILY MILLER Ergocalciferol (Vitamin D2) (Vitamin D2) 50,000 Unit Capsule, 1 CAP PO WEEKLY for supplement, #4 Ref 5 (Reported) takes every Mondays Entered as Reported by: VLAD SEGURA on 10/17/18541 Last Action: Continued on 10/17/18858 by EMILY MILLER Furosemide (Lasix) 40 Mg Tablet, 1 TAB PO DAILY for swelling, #90 Ref 1 ( Reported) Entered as Reported by: VLAD SEGURA on 10/17/18541 Last Action: Continued on 10/17/18858 by EMILY MILLER Lisinopril (Lisinopril) 40 Mg Tablet, 1 TAB PO BID for blood pressure, #30 Ref 5 (Reported) Entered as Reported by: Rhonda Kamara on 02/02/16935 Last Action: Continued on 10/17/18858 by EMILY MILLER Meclizine Hcl (Meclizine Hcl) 12.5 Mg Tablet, 1 TAB PO TID for dizzy, #60 Ref 3 Prescribed by: EMILY MILLER on 10/17/18 1020 Potassium Chloride (Potassium Chloride) 10 Meq Capsule.er, 2 CAP PO DAILY for supplement, #90 Ref 1 (Reported) Entered as Reported by: Rhonda Kamara on 02/02/16935 Last Action: Continued on 10/17/18858 by EMILY MILLER Ranitidine Hcl (Ranitidine Hcl) 300 Mg Capsule, 1 CAP PO DAILY, #30 Ref 3 ( Reported) Entered as Reported by: Rhonda Kamara on 4/27/16 0936 Last Action: Converted on 10/17/18858 by EMILY MILLER Scheduled PRN Albuterol Sulfate (Proair Hfa Inhaler) 8.5 Gm Hfa.aer.ad, 2 PUFF INH PRN Q4HRS PRN for SHORTNESS OF BREATH, Ref 0 (Reported) Entered as Reported by: VLAD SEGURA on 10/17/18 05 Last Action: Continued on 10/17/18858 by EMILY MILLER Clonidine Hcl (Catapres) 0.1 Mg Tablet, 0.1 MG PO PRN Q1HR PRN for HYPERTENSION , SEE COMMENTS MDD 1, #30 Prescribed by: EMILY MILLER on 10/17/18 1015 EMILY MILLER MD Oct 17, 2018 10:21
--- NOTE | 2018-10-17 11:38 | NUR ---
Pharmacy Medication Review S: Consulted for medication review re: C.diff Risk Assessment score of 4 O: FUEL,ALEXSANDRA Bean is a 83 year old with: Previous C.diff infection: No Previous hospitalization: Within 60 days Recent antibiotics: Within 60 days Use of gastric acid suppressor: Yes Transfer from NC/LTAC: No Current antibiotic regimen: None Current acid suppression regimen: none A: Patient has been identified as having risk factors for C.diff infection as noted above. P: Antibiotic Regimen recommendation made: n/a Probiotic ordered: no PPI changed to [id number]: n/a Alena Pfeiffer RPH, 10/17/18 1138
[2018-10-17 11:41] VITALS: BP 136/76
--- NOTE | 2018-10-17 13:03 | CARD ---
MR#: [id number] Date of Study: 10/17/2018 Ordering Physician: EMILY MILLER, Referring Physician: KAMRON CAMARGO Tech: Rosa Murillo APPROVED REPORT EXAM: Two-dimensional and M-mode echocardiogram with Doppler and color Doppler. Other Information Quality : AverageHR: 58bpm INDICATION Hypertension/HCVD 2D DIMENSIONS Left Atrium(2D)3.0 (1.6-4.0cm)IVSd1.3 (0.7-1.1cm) Aortic Root(2D)2.9 (2.0-3.7cm)LVDd3.9 (3.9-5.9cm) LVOT Diameter2.0 (1.8-2.4cm)PWd1.1 (0.7-1.1cm) LVDs2.9 (2.5-4.0cm)FS (%) 25.6 % SV33.5 mlLVEF(%)51.1 (>50%) Aortic Valve AoV Peak Lalito.123.9cm/sAoV VTI27.5cm AO Peak GR.6.1mmHgLVOT Peak Lalito.103.9cm/s AO Mean GR.3mmHgAVA (VMAX)2.62cm2 Mitral Valve MV E Xxsqmigh74.3cm/sMV DECEL [id number] MV A Rzhscqxn22.3cm/sE/A Ratio0.9 Pulmonary Valve PV Peak Ugpubbbr91.5cm/s Tricuspid Valve TR P. Szeikdfv906oz/sRAP [id number] TR Peak Gr.19fhOzLTAO58bzSo LEFT VENTRICLE The left ventricle is normal size. There is mild to moderate concentric left ventricular hypertrophy. The left ventricular systolic function is normal and the ejection fraction is within normal range. T he Ejection Fraction is 50-55%. There is normal LV segmental wall motion. Transmitral Doppler flow pa ttern is Grade I-abnormal relaxation pattern. RIGHT VENTRICLE The right ventricle is borderline dilated. There is normal right ventricular wall thickness. The righ t ventricular systolic function is normal. ATRIA The left atrium size is normal. The right atrium size is normal. The interatrial septum is intact wit h no evidence for an atrial septal defect or patent foramen ovale as noted on 2-D or Doppler imaging. AORTIC VALVE The aortic valve is normal in structure and function. Doppler and Color Flow revealed no significant aortic regurgitation. There is no significant aortic valvular stenosis. MITRAL VALVE The mitral valve is normal in structure and function. There is no evidence of mitral valve prolapse. There is no mitral valve stenosis. Doppler and Color-flow revealed trace to mild mitral regurgitation . TRICUSPID VALVE The tricuspid valve is normal in structure and function. Doppler and Color Flow revealed mild tricusp id regurgitation with an estimated PAP of 40mmHg. There is no tricuspid valve stenosis. PULMONIC VALVE The pulmonic valve is not well visualized. Doppler and Color Flow revealed mild pulmonic valvular reg urgitation. GREAT VESSELS The aortic root is normal in size. The IVC is normal in size and collapses >50% with inspiration. PERICARDIAL EFFUSION There is no evidence of significant pericardial effusion. Critical Notification Critical Value: No <Conclusion> The left ventricular systolic function is normal and the ejection fraction is within normal range. Th e Ejection Fraction is 50-55%. There is normal LV segmental wall motion. Doppler and Color Flow revealed mild tricuspid regurgitation with an estimated PAP of 40mmHg. Signed by : Deuce Rose, Electronically Approved : 10/17/2018 13:01:47
--- NOTE | 2018-10-17 14:17 | NUR ---
pt was given dc packet, explained, no questions asked. rx given for dizziness and high blood pressure. VSS. No pain. Pt was taken home by transport at 1415 by .
[2018-10-17] MEDS ORDERED: FAMOTIDINE 20 MG TABLET. PO SCH (21:00)
== END 2018-10-17 14:20 | disposition home or self-care (01) ==
LOC: ER 01:33 → 5 NORTH 03:40
PROVIDERS: ADMIT Internal Medicine; ATTEND Internal Medicine
DX: R42 Dizziness and giddiness (principal); R51 Headache; I10 Essential (primary) hypertension; J45.909 Unspecified asthma, uncomplicated; K21.9 Gastro-esophageal reflux disease without esophagitis; E66.9 Obesity, unspecified; Z68.41 Body mass index [BMI] 40.0-44.9, adult; Z79.82 Long term (current) use of aspirin; Z79.899 Other long term (current) drug therapy; Z86.73 Personal history of transient ischemic attack (TIA), and cerebral infarction without residual deficits; Z90.710 Acquired absence of both cervix and uterus; Z98.84 Bariatric surgery status; Z82.49 Family history of ischemic heart disease and other diseases of the circulatory system
CPT/HCPCS: 36415; 70450; 80053; 81001; 85025; 87086; 93005; 93306; 94760; 97161; 97165; 97535; 99284; G0378; G8978; G8979; G8980; G8987; G8988; G8989; J8597; G0379

== ENCOUNTER 2020-05-23 23:22 | Emergency (ER) | payer MEDICARE ==
[~2020-05-23] VITALS: Ht 172.7 cm; Wt 109.1 kg
[~2020-05-23 23:22] MED LIST changes: +ALBU2.5V8 INH; +ASPI-630 PO; +CARV25TA PO; +CLON0.1T12 PO; +FURO-68 PO; +MECL12.573 PO
--- NOTE | 2020-05-24 00:31 | PHYS DOC ---
Past Medical History Past Medical History: Asthma, GERD, Hypertension, TIA Past Surgical History: Cholecystectomy, Hysterectomy Additional Past Surgical Histo: Gastric Bypass Smoking Status: Former Smoker Alcohol Use: None Drug Use: None General Adult EDM: Chief Complaint: SHORTNESS OF BREATH HPI: HPI: Patient is a 85 year old female who presents with vague complaints. Patient states that today she got very flustered when she thought that there was a gas leak in her house. She denied a sense of impending doom but it sounded like she was very anxious during this time. The fire department and the [employer] did show up to her house. There was no evidence of a gas leak. However during their evaluation of her and the residents she was noted to have some elevated blood pressure so they advised her to come into the emergency room for further evaluation. Here she denies any shortness of breath. She says that there is been no cough, fever, chills or COVID exposure. She does complain of dizziness but reports that the dizziness is resolved. She reports that the dizziness is not a new problem for her. She has trouble with her blood pressure and vertigo. She otherwise reports that she has been in her usual state of fair health. Patient is a reluctant historian. Review of Systems: Review of Systems: Constitutional: Denies fever or chills. [] Eyes: Denies change in visual acuity. [] HENT: Denies nasal congestion or sore throat. [] Respiratory: See HPI [] Cardiovascular: See HPI. [] GI: Denies abdominal pain, nausea, vomiting, bloody stools or diarrhea. [] : Denies dysuria. [] Musculoskeletal: Denies back pain or joint pain. [] Integument: Denies rash. [] Neurologic: See HPI [] Endocrine: Denies polyuria or polydipsia. [] Lymphatic: Denies swollen glands. [] Psychiatric: Denies depression or anxiety. [] Heart Score: Risk Factors: Risk Factors: DM, Current or recent (<one month) smoker, HTN, HLP, family history of CAD, obesity. Risk Scores: Score 0 - 3: 2.5% MACE over next 6 weeks - Discharge Home Score 4 - 6: 20.3% MACE over next 6 weeks - Admit for Clinical Observation Score 7 - 10: 72.7% MACE over next 6 weeks - Early Invasive Strategies Allergies: Allergies: Allergies Coded Allergies Type Severity Reaction Last Updated Verified Sulfa (Sulfonamide Antibiotics) Allergy Intermediate 06/28/17 Yes Physical Exam: PE: Constitutional: Well developed, well nourished, no acute distress, non-toxic appearance. [] HENT: Normocephalic, atraumatic, bilateral external ears normal, oropharynx moist, no oral exudates, nose normal. [] Eyes: PERRLA, EOMI, conjunctiva normal, no discharge. Positive nystagmus with left lateral gaze [] Neck: Normal range of motion, no tenderness, supple, no stridor. [] Cardiovascular:Heart rate regular rhythm, grade 2/6 systolic murmur, no S3 or S4, nonpalpable distal pulses [] Lungs & Thorax: Crackles at both bases, otherwise clear to auscultation [] Abdomen: Bowel sounds normal, soft, no tenderness, no masses, no pulsatile masses. [] Skin: Warm, dry, no erythema, no rash. [] Back: No tenderness, no CVA tenderness. [] Extremities: No tenderness, no cyanosis, no clubbing, ROM intact, 2 mm pitting edema symmetric bilaterally [] Neurologic: Alert and oriented X 3, normal motor function, normal sensory function, no focal deficits noted. [] Psychologic: Affect flat, judgement normal, mood depressed. [] Current Patient Data: Vital Signs: Vital Signs Date Time Temp Pulse Resp B/P (MAP) Pulse Ox O2 Delivery O2 Flow Rate FiO2 05/23/20 23:22 97.8 72 22 214/94 (134) 99 Room Air 97.8 EKG: EKG: Heart rate 74 bpm, right bundle branch block, normal axis, abnormal ECG [] Radiology/Procedures: Radiology/Procedures: [] Course & Med Decision Making: Course & Med Decision Making Pertinent Labs and Imaging studies reviewed. (See chart for details) 0320-patient was seen and examined. There is no evidence of any exigent medical or surgical problem. Patient's blood pressure is elevated but she denies chest pain or shortness of breath. Work-up here is not been consistent with an acute stroke syndrome. I discussed with her need for follow-up, reasons to return and treatment plan. [] Dragon Disclaimer: Manfred Disclaimer: This electronic medical record was generated, in whole or in part, using a voice recognition dictation system. Departure Departure Impression: Primary Impression: Benign essential hypertension Disposition: HOME, SELF-CARE Condition: STABLE Referrals: LUIS FARLEY MD (PCP) Patient Instructions: Managing Your High Blood Pressure Additional Instructions: Call your physician in the morning for blood pressure medication adjustments Justicifation of Admission Dx: Justifications for Admission: Justification of Admission Dx: N/A SHANE HERNÁNDEZ MD May 24, 2020 00:31
[2020-05-24] MEDS ORDERED: cloNIDine HCL 0.1 MG TABLET PO ONE (01:00)
[2020-05-24 01:01] LABS: BILIRUBIN,URINE NEGATIVE (NEG); CLARITY,URINE CLEAR; COLOR,URINE YELLOW; NITRITE,URINE NEGATIVE (NEG); PH,URINE 7.5 (<5.0-8.0); PROTEIN,URINE NEGATIVE (NEG-TRACE); UROBILINOGEN,URINE 0.2 mg/dL (0.2 mg/dL)
[2020-05-24 01:02] LABS: BASO % 1 % (0-3); EOS # 0.3 x10^3/uL (0.0-0.7); EOS % 4 % (0-3); HEMATOCRIT 36.7 % (36.0-47.0); HEMOGLOBIN 11.4 g/dL (12.0-15.5); LYMPH # 2.6 x10^3/uL (1.0-4.8); LYMPH % 36 % (24-48); MEAN CORPUSCULAR HEMOGLOBIN 23 pg (25-35); MEAN CORPUSCULAR HGB CONC 31 g/dL (31-37); MEAN CORPUSCULAR VOLUME 74 fL (79-100); MONO # 0.6 x10^3/uL (0.0-1.1); MONO % 8 % (0-9); NEUT # 3.7 x10^3/uL (1.8-7.7); NEUT % 52 % (31-73); PLATELET COUNT 197 x10^3/uL (140-400); RED BLOOD COUNT 4.93 x10^6/uL (3.50-5.40); RED CELL DISTRIBUTION WIDTH 20.1 % (11.5-14.5); WHITE BLOOD COUNT 7.2 x10^3/uL (4.0-11.0)
[2020-05-24 01:09] LABS: PROTHROMBIN TIME PATIENT 13.6 SEC (11.7-14.0)
[2020-05-24 01:10] LABS: BACTERIA,URINE MODERATE /HPF (0-FEW); RBC,URINE OCC /HPF (0-2); SQUAMOUS EPITHELIAL CELL,UR MOD /LPF; WBC,URINE OCC /HPF (0-4)
[2020-05-24 01:21] LABS: CALCIUM 8.7 mg/dL (8.5-10.1); GFR 64.1; POTASSIUM 4.1 mmol/L (3.5-5.1)
--- NOTE | 2020-05-24 01:23 | RAD ---
INDICATION: Reason: Shortness of Breath ER #21 / Spl. Instructions: / History: COMPARISON: April 2010 FINDINGS: 2 view of chest obtained. Enlargement of the right greater than left pulmonary hilum is again seen. Can be from enlarged pulmonary artery or lymphadenopathy. Calcific atherosclerosis. Degenerative changes of the spine. Surgical clips are seen projecting over the mediastinum as well as left upper quadrant of the abdomen. There is some disorganization of the pulmonary markings. Degenerative changes in the spine. A definite new region of consolidation is not seen. IMPRESSION: * No definite focal airspace consolidation. Electronically signed by: Fam Schmidt MD (05/24/2020 1:20 AM) [id number]
[2020-05-24 01:25] LABS: ALBUMIN 3.5 g/dL (3.4-5.0); ALBUMIN/GLOBULIN RATIO 0.8 (1.0-1.7); TOTAL BILIRUBIN 0.3 mg/dL (0.2-1.0); TOTAL PROTEIN 7.9 g/dL (6.4-8.2)
[2020-05-24 03:15] VITALS: BP 177/72
--- NOTE | 2020-05-24 07:13 | EKG ---
[facility] [address] [place] [id number] Test Date: 2020-05-24 Test Time: 00:17:30 Pat Name: ALEXSANDRA MIN Department: Room: Gender: F [employer]: : [id number] Requested By: SHANE HERNÁNDEZ Order Number: [id number] Reading MD: Measurements Intervals [place] Rate: 74 P: 51 NC: 134 QRS: 56 QRSD: 124 T: 55 QT: 426 QTc: 473 Interpretive Statements SINUS RHYTHM RIGHT BUNDLE BRANCH BLOCK ABNORMAL ECG RI6.02 No previous ECG available for comparison
== END 2020-05-24 05:45 | disposition home or self-care (01) ==
LOC: ER 23:22
DX: I10 Essential (primary) hypertension (principal); R42 Dizziness and giddiness; J45.909 Unspecified asthma, uncomplicated; K21.9 Gastro-esophageal reflux disease without esophagitis; Z86.73 Personal history of transient ischemic attack (TIA), and cerebral infarction without residual deficits; Z90.49 Acquired absence of other specified parts of digestive tract; Z90.710 Acquired absence of both cervix and uterus; Z98.890 Other specified postprocedural states; Z87.891 Personal history of nicotine dependence; Z88.2 Allergy status to sulfonamides
CPT/HCPCS: 36415; 71046; 80053; 81001; 84484; 85025; 85610; 87086; 93005; 99285

== ENCOUNTER → 2020-06-17 | Outpatient (CLI) | payer BC, MEDICARE ==
[2020-05-24 03:15] VITALS: BP 177/72
--- NOTE | 2020-06-18 15:25 | RAD ---
DATE: 06/17/2020 10:04 AM EXAM: MAMMO EDMUND SCREENING BILATERAL HISTORY: Screening COMPARISON: 04/23/17, 04/24/18 Bilateral CC and MLO views of the breasts were performed. Bilateral breast tomosynthesis was performed in CC and MLO projections. This study was interpreted with the benefit of Computerized Aided Detection (CAD). FINDINGS: Breast Density: SCATTERED The breast parenchyma shows scattered fibroglandular densities. Breast parenchyma level B No suspicious masses, microcalcifications or architectural distortion is present to suggest malignancy in either breast. The visualized axillae are unremarkable. IMPRESSION: No mammographic evidence of malignancy. BI-RADS CATEGORY: 1 NEGATIVE RECOMMENDED FOLLOW-UP: 12M 12 MONTH FOLLOW-UP Annual screening mammography is recommended, unless clinically indicated sooner based on symptoms or change in physical exam. PQRS compliance statement: Patient information was entered into a reminder system with a target due date for the next mammogram. Mammography is a sensitive method for finding small breast cancers, but it does not detect them all and is not a substitute for careful clinical examination. A negative mammogram does not negate a clinically suspicious finding and should not result in delay in biopsying a clinically suspicious abnormality. "Our facility is accredited by the [employer] Mammography Program."
== END | disposition home or self-care (01) ==
LOC: MAMMO 09:55
PROVIDERS: ATTEND Family Medicine
DX: Z12.31 Encounter for screening mammogram for malignant neoplasm of breast (principal)
CPT/HCPCS: 77063; 77067